=== PATIENT | female | born 1935 | race Hispanic/Latino ===

== ENCOUNTER 2017-09-20 12:39 | Emergency (ER) | payer MEDICARE ==
[2017-09-20 12:39] VITALS: BMI 25.0
[2017-09-20 13:10] VITALS: TEMP 98
--- NOTE | 2017-09-20 13:49 | ED PDOC ---
Lower Extremity Pain/Injury Time Seen by Provider: 09/20/17 13:22 Chief Complaint (Nursing): Lower Extremity Problem/Injury Chief Complaint (Provider): Left lower le swelling History Per: Patient History/Exam Limitations: no limitations Onset/Duration Of Symptoms: Days (1) Current Symptoms Are (Timing): Still Present Additional Complaint(s): 82yo female with past medical history of hypertension, diabetes, hypercholesterolemia, CAD, pacemaker, presents to ED for evaluation of left lower leg swelling and pain since yesterday. She denies any trauma or injury to her leg and also denies any chest pain, shortness of breath, joint pain, difficulty walking, redness. No other medical complaints. PCP: Dr. [facility] Supervisor: Dr. Florez Past Medical History Reviewed: Historical Data, Nursing Documentation, Vital Signs Vital Signs: Last Vital Signs Temp 98.0 F 09/20/17 13:07 Pulse 87 09/20/17 13:07 Resp 18 09/20/17 13:07 BP 153/70 H 09/20/17 13:07 Pulse Ox 100 09/20/17 13:07 - Medical History PMH: Anxiety, Arthritis, Diabetes, HTN, Hypercholesterolemia Denies: HIV, Chronic Kidney Disease - Surgical History Surgical History: Pacemaker (2016) - Family History Family History: States: Unknown Family Hx - Home Medications Home Medications: Ambulatory Orders Medication Instructions Recorded Bimatoprost [Lumigan] 2.5 ml OP DAILY 10/03/16 Docusate [Colace] 200 mg PO DAILY #0 cap 10/07/16 Folic Acid 1 mg PO DAILY #0 tab 10/07/16 Latanoprost 0.005% Opht [Xalatan 1 drop OU HS #0 bottle 10/07/16 Opht] Thiamine [Vitamin B1 Tab] 100 mg PO DAILY #0 tab 10/07/16 Acetaminophen [Tylenol 325mg tab] 650 mg PO Q6 PRN 10/13/16 Famotidine [Pepcid] 20 mg PO BID #0 tab 10/13/16 metFORMIN [glucOPHAGE] 500 mg PO BID #0 tab 10/13/16 Apixaban [Eliquis] 2.5 mg PO BID #60 tablet 10/21/16 Escitalopram [Lexapro] 5 mg PO DAILY #30 tab 10/21/16 Latanoprost 0.005% Opht [Xalatan 1 unit OU HS 10/21/16 Opht] clonazePAM HALF TAB [Klonopin- 0.25 mg PO HS PRN 10/21/16 HALF TAB] - Allergies Allergies/Adverse Reactions: Allergies Allergy/AdvReac Type Severity Reaction Status Date / Time amoxicillin Allergy RASH Verified 10/03/16 21:17 levofloxacin Allergy RASH Verified 10/03/16 21:17 Penicillins Allergy RASH Verified 10/03/16 21:17 Review of Systems ROS Statement: Except As Marked, All Systems Reviewed And Found Negative Cardiovascular: Negative for: Chest Pain Respiratory: Negative for: Shortness of Breath Musculoskeletal: Positive for: Leg Pain (left lowr leg swelling, no pain or difficulty walking) Physical Exam - Reviewed Nursing Documentation Reviewed: Yes Vital Signs Reviewed: Yes - Physical Exam Appears: Positive for: Non-toxic, No Acute Distress Head Exam: Positive for: ATRAUMATIC, NORMAL INSPECTION, NORMOCEPHALIC Skin: Positive for: Normal Color Eye Exam: Positive for: Normal appearance Neck: Positive for: Supple Cardiovascular/Chest: Positive for: Regular Rate, Rhythm. Negative for: Murmur Respiratory: Positive for: Normal Breath Sounds. Negative for: Respiratory Distress Gastrointestinal/Abdominal: Positive for: Normal Exam, Soft. Negative for: Tenderness Extremity: Positive for: Normal ROM, Calf Tenderness (left), Swelling (left calf and ankle swelling, no redness. ), Other (varicose veins noted left lower extremity). Negative for: Deformity Neurologic/Psych: Positive for: Alert, Oriented. Negative for: Motor/Sensory Deficits - Laboratory Results Result Diagrams: 09/20/17 15:11 09/20/17 15:11 - ECG O2 Sat by Pulse Oximetry: 100 (RA) Pulse Ox Interpretation: Normal Medical Decision Making Medical Decision Making: Time: 1332 Impression: Left leg swelling Differential: DVT, CHF, Dependent edema, varicose veins Plan: -- Labs -- US Duplex lower extremity Reassess Time: 1443 --US duplex LE FINDINGS: 2-D, color and duplex Doppler analysis of the lower extremity venous circulation using routine protocol from the femoral veins through the popliteal veins. Venous compressibility: Normal. Flow and augmentation patterns: Normal. Visualized veins upper third of calf: Normal. Flor cyst: None. IMPRESSION: No sonographic or Doppler evidence for DVT in left lower extremity. Scribe Attestation: Documented by Malka Brenner acting as a scribe for Hay Hawkins MD. Provider Attestation: All medical record entries made by the Scribe were at my direction and personally dictated by me. I have reviewed the chart and agree that the record accurately reflects my personal performance of the history, physical exam, medical decision making, and the department course for this patient. I have also personally directed, reviewed, and agree with the discharge instructions and disposition. Disposition - Clinical Impression Clinical Impression: Left leg swelling - Patient ED Disposition Is Patient to be Admitted: No Doctor Will See Patient In The: Office Counseled Patient/Family Regarding: Studies Performed, Diagnosis, Need For Followup - Disposition Referrals: Ortiz Shankar MD [Family Provider] - Disposition: Routine/Home Disposition Time: 15:57 Condition: GOOD Additional Instructions: Elevate leg at all times. Wear compression stockings. Follow up with your PCP in 2-3 days. Instructions: Leg Edema (ED) Print Language: CHINESE
--- NOTE | 2017-09-20 14:45 | US ---
HISTORY: Left lower leg swelling and pain . PRIORS: 10/06/2016. FINDINGS: 2-D, color and duplex Doppler analysis of the lower extremity venous circulation using routine protocol from the femoral veins through the popliteal veins. Venous compressibility: Normal. Flow and augmentation patterns: Normal. Visualized veins upper third of calf: Normal. Flor cyst: None. IMPRESSION: No sonographic or Doppler evidence for DVT in left lower extremity.
[2017-09-20 15:18] LABS: BASO % 0.7 % (0.0-2.0); EOS # 0.1 K/uL (0.0-0.7); EOS % 1.1 % (0.0-4.0); HEMATOCRIT 36.2 % (34.0-47.0); LYMPH # 1.9 K/uL (1.0-4.3); LYMPH % 34.9 % (20.0-40.0); MEAN CELL VOLUME 103.5 fl (81.0-99.0); MEAN CORPUSCULAR HEMOGLOBIN 35.2 pg (27.0-31.0); MEAN PLATELET VOLUME 8.5 fl (7.2-11.7); MONO # 0.8 K/uL (0.0-0.8); MONO % 13.8 % (0.0-10.0); NEUT # 2.7 K/uL (1.8-7.0); NEUT % 49.5 % (50.0-75.0); NRBC % 0.1 % (0.0-0.0); RED CELL DISTRIBUTION WIDTH 14.7 % (11.5-14.5); WHITE BLOOD COUNT 5.5 K/uL (4.8-10.8)
[2017-09-20 15:33] LABS: PARTIAL THROMBOPLASTIN TIME 28.9 Seconds (25.6-37.1)
[2017-09-20 15:45] LABS: BLOOD UREA NITROGEN 17 mg/dl (7-17); CALCIUM 9.3 mg/dL (8.4-10.2); CARBON DIOXIDE 23 mmol/L (22-30); CHLORIDE 108 mmol/L (98-107); GFR AFRICAN-AMERICAN > 60; GLUCOSE,RANDOM 112 mg/dL (65-105); POTASSIUM 4.2 MMOL/L (3.6-5.0); SODIUM 142 mmol/l (132-148)
[2017-09-20 16:08] VITALS: BP 132/78; PULSE 75; RESP 14; O2SAT 98
== END 2017-09-20 16:07 | disposition home or self-care (01) ==
LOC: H.ER 12:39
DX: R22.42 Localized swelling, mass and lump, left lower limb (principal); E11.9 Type 2 diabetes mellitus without complications; E78.00 Pure hypercholesterolemia, unspecified; F41.9 Anxiety disorder, unspecified; I10 Essential (primary) hypertension; Z79.01 Long term (current) use of anticoagulants; Z79.84 Long term (current) use of oral hypoglycemic drugs; Z88.0 Allergy status to penicillin; Z95.0 Presence of cardiac pacemaker